=== PATIENT | female | born 1995 | race American Indian/Alaskan Native ===

== ENCOUNTER 2022-03-07 01:02 | Emergency (ER) | payer SELFPAY ==
[2022-03-07 01:13] VITALS: BP 125/68
== END 2022-03-07 08:25 | disposition left against medical advice (07) ==
LOC: EEVIPCON 01:02 → ED 01:02
DX: O26.892 Other specified pregnancy related conditions, second trimester (principal); Z3A.19 19 weeks gestation of pregnancy; Z53.21 Procedure and treatment not carried out due to patient leaving prior to being seen by health care provider; Y08.89XA Assault by other specified means, initial encounter; Y93.89 Activity, other specified; Y92.89 Other specified places as the place of occurrence of the external cause; Y99.8 Other external cause status